=== PATIENT | female | born 1990 | race American Indian/Alaskan Native ===

== ENCOUNTER 2017-01-03 13:40 | Emergency (ER) | payer MEDICARE ==
[2017-01-03 14:35] VITALS: BP 103/64
[2017-01-03] MEDS ORDERED: TETRACAINE 0.5% OU PRN (16:20)
[2017-01-03] MEDS ORDERED: FUL-GLO OP ONE (16:20)
--- NOTE | 2017-01-03 16:30 | Emergency Department Report ---
ED Eye Problem HPI - General Chief complaint: Eye Problems Stated complaint: SWOLLEN EYE Time Seen by Provider: 01/03/17 16:08 Source: patient Mode of arrival: Ambulatory Limitations: No Limitations - History of Present Illness Initial comments: This is a 26-year-old female that presents intermittent with right eyelid swelling, redness, itching, crusting, and pain x1 week. Patient also stated has been having burning sensation to the right eye x1 week. Patient denies any trauma or foreign body to the eyes. Patient denies CP, SOB, visional changes, eye pain, blurry vision, headache, n/v, abd pain, stiff neck, facial drooping, difficulty speaking. Patient denies any allergies. Denies significant past medical history. MD chief complaint: other (right eyelid pain with swelling) -: Gradual, week(s) (1 intermittent ) Onset Description: gradual Location: right eye Place: home If Injury: none Eye Symptoms: burning, redness, pain, itching, discharge Severity: mild Severity scale (0 -10): 6 Consistency: intermittent Associated Symptoms: none. denies: headache, neck pain, nausea/vomiting, cough , rhinorrhea, fever, shortness of breath Treatments Prior to Arrival: none - Related Data Previous Rx's Medication Instructions Recorded Last Taken Type Hydrocortisone 1% [Hydrocortisone 1 applicatio TP TID #1 tube 03/31/15 Unknown Rx 1% CREAM] diphenhydrAMINE [Benadryl CAP] 25 mg PO Q6HR PRN #20 capsule 03/31/15 Unknown Rx medroxyPROGESTERone ACETATE 10 mg PO QDAY #10 tablet 03/31/15 Unknown Rx [Provera] Nitrofurantoin [place]/M-Cryst 100 mg PO Q12HR #14 capsule 04/14/15 Unknown Rx [Macrobid CAP] Phenazopyridine [Pyridium] 100 mg PO TID #6 tab 04/14/15 Unknown Rx Erythromycin [Erythromycin Ophth 10 applic OP QID #1 tube 01/03/17 Unknown Rx Oint] Allergies Allergy/AdvReac Type Severity Reaction Status Date / Time No Known Allergies Allergy Unverified 03/31/15 13:41 ED Review of Systems ROS: Stated complaint: SWOLLEN EYE Other details as noted in HPI Constitutional: denies: chills, fever Eyes: denies: eye pain, eye discharge, vision change ENT: denies: ear pain, throat pain Respiratory: denies: cough, shortness of breath, wheezing Cardiovascular: denies: chest pain, palpitations Endocrine: no symptoms reported Gastrointestinal: denies: abdominal pain, nausea, diarrhea Genitourinary: denies: urgency, dysuria, discharge Musculoskeletal: denies: back pain, joint swelling, arthralgia Skin: denies: rash, lesions Neurological: denies: headache, weakness, paresthesias Psychiatric: denies: anxiety, depression Hematological/Lymphatic: denies: easy bleeding, easy bruising ED Past Medical Hx - Past Medical History Previous Medical History?: Yes Additional medical history: ECZEMA - Surgical History Past Surgical History?: Yes Additional Surgical History: LEFT EYE SURGERY - Social History Smoking Status: Current Every Day Smoker Substance Use Type: None - Medications Home Medications: Home Medications Medication Instructions Recorded Confirmed Last Taken Type Hydrocortisone 1% [Hydrocortisone 1 applicatio TP TID #1 tube 03/31/15 Unknown Rx 1% CREAM] diphenhydrAMINE [Benadryl CAP] 25 mg PO Q6HR PRN #20 capsule 03/31/15 Unknown Rx medroxyPROGESTERone ACETATE 10 mg PO QDAY #10 tablet 03/31/15 Unknown Rx [Provera] Nitrofurantoin [place]/M-Cryst 100 mg PO Q12HR #14 capsule 04/14/15 Unknown Rx [Macrobid CAP] Phenazopyridine [Pyridium] 100 mg PO TID #6 tab 04/14/15 Unknown Rx Erythromycin [Erythromycin Ophth 10 applic OP QID #1 tube 01/03/17 Unknown Rx Oint] ED Physical Exam - General Limitations: No Limitations General appearance: alert, in no apparent distress - Head Head exam: Present: atraumatic, normocephalic - Eye Eye exam: Present: normal appearance, PERRL, EOMI. Absent: scleral icterus, conjunctival injection, nystagmus, periorbital swelling, periorbital tenderness Pupils: Present: normal accommodation - Expanded Eye Exam Expanded Eyelids: Normal Inspection: Right, Erythema: Right (with crusting), Swelling: Right Pupils: Regular, Round: Bilateral, Reactive: Bilateral Sclera/Conjunctival: Normal Inspection: Bilateral Visual acuity (R) = 20/: 25 Visual acuity (L) = 20/: 20 With correction: Yes - ENT ENT exam: Present: normal exam, normal orophraynx, mucous membranes moist, TM's normal bilaterally, normal external ear exam - Neck Neck exam: Present: normal inspection, full ROM. Absent: tenderness, meningismus, lymphadenopathy, thyromegaly - Respiratory Respiratory exam: Present: normal lung sounds bilaterally. Absent: respiratory distress, wheezes, rales, rhonchi, stridor, chest wall tenderness, accessory muscle use, decreased breath sounds, prolonged expiratory - Cardiovascular Cardiovascular Exam: Present: regular rate, normal rhythm, normal heart sounds. Absent: bradycardia, tachycardia, irregular rhythm, systolic murmur, diastolic murmur, rubs, gallop - GI/Abdominal GI/Abdominal exam: Present: soft, normal bowel sounds - Extremities Exam Extremities exam: Present: normal inspection, full ROM, normal capillary refill. Absent: tenderness, pedal edema, joint swelling, calf tenderness - Back Exam Back exam: Present: normal inspection, full ROM. Absent: tenderness, CVA tenderness (R), CVA tenderness (L), muscle spasm, paraspinal tenderness, vertebral tenderness, rash noted - Neurological Exam Neurological exam: Present: alert, oriented X3, CN II-XII intact, normal gait - Psychiatric Psychiatric exam: Present: normal affect, normal mood - Skin Skin exam: Present: warm, dry, intact, normal color. Absent: rash - Other Other exam information: Under rowley lamp, no corneal abrasion or foreign body noted on right eye. ED Course Vital Signs 01/03/17 14:33 Temperature 98.6 F Pulse Rate 75 Respiratory 18 Rate Blood Pressure 103/64 O2 Sat by Pulse 100 Oximetry - Reevaluation(s) Reevaluation #1: 01/03/17 17:05 Patient is talking and smiling with no signs of distress. ED Medical Decision Making - Medical Decision Making Ed course: This is a 26-year-old female that presents with Blepharitis of right eye 1- after my physical exam, under rowley lamp the cornea looks normal with no signs of foreign body or abrasion. 2- patient received topical erythromycin ointment 3- patient was instructed to follow-up with her primary care doctor in 3-5 days or if symptoms worsen such as blurry vision, visual changes, pus, drainage, chest pain, shortness of breath, nausea or vomiting, or headache reported back to emergency room as soon as possible. 4- patient was also instructed to use warm compresses, lid washing, and lid massaging to the affected eye. Critical care attestation.: If time is entered above; I have spent that time in minutes in the direct care of this critically ill patient, excluding procedure time. ED Disposition Clinical Impression: Blepharitis of eyelid of right eye Qualifiers: Blepharitis type: unspecified type Eyelid: upper Qualified Code(s): H01.001 - Unspecified blepharitis right upper eyelid Disposition: TO HOME OR SELFCARE Is pt being admited?: No Does the pt Need Aspirin: No Condition: Stable Instructions: Blepharitis (ED), Erythromycin (Into the eye) Additional Instructions: Follow-up with your primary care doctor in 3-5 days or if symptoms worsen such as blurry vision, visual changes, pus, drainage, chest pain, shortness of breath , nausea or vomiting, or headache reported back to emergency room as soon as possible. Use warm compresses, lid washing, and lid massaging to the affected eye. Take full course of antibiotics as prescribed Prescriptions: Erythromycin [Erythromycin Ophth Oint] 10 applic OP QID #1 tube Referrals: PRIMARY MD ANA [Primary Care Provider] - 3-5 Days [facility] [Outside] - 3-5 Days [facility] [place] [Outside] - 3-5 Days BENEDICTO DIAZ JR, MD [Staff Physician] - 3-5 Days FLORES ESCOBEDO MD [Referring] - 3-5 Days Forms: Work/School Release Form(ED)
== END 2017-01-03 18:28 | disposition home or self-care (01) ==
LOC: ED 13:40
DX: H01.001 Unspecified blepharitis right upper eyelid (principal); F17.200 Nicotine dependence, unspecified, uncomplicated
CPT/HCPCS: 99283

== ENCOUNTER 2017-06-15 14:41 | Emergency (ER) | payer MEDICARE ==
--- NOTE | 2017-06-15 18:05 | Emergency Department Report ---
Eye Injury/Foreign Body - HPI Duration: months Eye Location: Left Severity: None Tetanus Status: Not up to Date Eye Symptoms: Eye Pain: No, Blurred Vision: No, Eye Redness: No, Grinding/ Hammering Metal: No, Used Eye Protection: No, Contact Lens Use: No, Recalls Injury: No, Photophobia: No Other History: 27 0 -[place] female comes in today for complaint of sty on left eye that's been on and off for months. Patient persists she's been applying hot rags. This is not a new diagnosis she has had this since December. She is requesting eye ointment. She does have a history of eye surgery for a week by muscle. Patient currently takes no medications on a daily basis. ED Review of Systems ROS: Stated complaint: STYE Other details as noted in HPI Comment: All other systems reviewed and negative Constitutional: denies: chills, fever Eyes: other (growth on the left upper lid) ENT: denies: ear pain, throat pain Respiratory: denies: cough, shortness of breath, wheezing Cardiovascular: denies: chest pain, palpitations Endocrine: no symptoms reported ED Past Medical Hx - Past Medical History Previous Medical History?: No Additional medical history: ECZEMA - Surgical History Additional Surgical History: LEFT EYE SURGERY - Social History Smoking Status: Never Smoker Substance Use Type: None - Medications Home Medications: Home Medications Medication Instructions Recorded Confirmed Last Taken Type Hydrocortisone 1% [Hydrocortisone 1 applicatio TP TID #1 tube 03/31/15 Unknown Rx 1% CREAM] diphenhydrAMINE [Benadryl CAP] 25 mg PO Q6HR PRN #20 capsule 03/31/15 Unknown Rx medroxyPROGESTERone ACETATE 10 mg PO QDAY #10 tablet 03/31/15 Unknown Rx [Provera] Nitrofurantoin [place]/M-Cryst 100 mg PO Q12HR #14 capsule 04/14/15 Unknown Rx [Macrobid CAP] Phenazopyridine [Pyridium] 100 mg PO TID #6 tab 04/14/15 Unknown Rx Erythromycin [Erythromycin Ophth 10 applic OP QID #1 tube 06/15/17 Unknown Rx Oint] Eye Injury Exam - Exam General: Vital signs noted. No distress. Alert and acting appropriately. - Visual Acuity Left Eye Exam: Neither Injection, Neither Chemosis, Neither Abnormal Pupil, Neither EOMI, Neither Eye Foreign Body, Neither Lid Foreign Body, Neither Mucous Discharge, Neither Purulent Discharge Exam: Left upper lid firm lesion appears to be a stye. Nontender to palpate no eyelash matting no purulent discharge no change of vision no pain. ED Course Vital Signs 06/15/17 16:05 Temperature 98.6 F Pulse Rate 93 H Respiratory 18 Rate Blood Pressure 113/56 O2 Sat by Pulse 100 Oximetry ED Medical Decision Making - Medical Decision Making Patient seen by this provider fast track. Discussed the patient is a chronic issue that we will give her erythromycin ointment to place on the left eyelid. Discussed the patient that she continues baby shampoo to clean her eyelid. Discussed the patient she continues warm rags compresses to the left upper eyelid. Discussed with patient that she needs to follow-up with her primary care provider or tray room worker. Patient verbalized understanding. Critical care attestation.: If time is entered above; I have spent that time in minutes in the direct care of this critically ill patient, excluding procedure time. ED Disposition Clinical Impression: History of hordeolum Hordeolum externum (morena) Qualifiers: Laterality: left Eyelid: upper Qualified Code(s): H00.014 - Hordeolum externum left upper eyelid Disposition: DC-01 TO HOME OR SELFCARE Is pt being admited?: No Does the pt Need Aspirin: No Condition: Stable Instructions: Morena (ED) Additional Instructions: Please follow up with her primary care provider and or tray room worker for further evaluation. Prescriptions: Erythromycin [Erythromycin Ophth Oint] 10 applic OP QID #1 tube Referrals: PRIMARY CARE, [Primary Care Provider] - 3-5 Days JAKOB LANTIGUA MD [Staff Physician] - 3-5 Days ELAINE BAZAN MD [Staff Physician] - 3-5 Days
[2017-06-15 19:21] VITALS: BP 98/59
== END 2017-06-15 19:09 | disposition home or self-care (01) ==
LOC: ED 14:41
DX: H00.014 Hordeolum externum left upper eyelid (principal); Z98.890 Other specified postprocedural states
CPT/HCPCS: 99282

== ENCOUNTER 2021-03-09 21:46 | Emergency (ER) | payer OTHER, MEDICARE ==
[2021-03-10 01:49] VITALS: BP 119/76
--- NOTE | 2021-03-10 04:40 | Emergency Department Report ---
- General Chief Complaint: Upper Respiratory Infection Stated Complaint: COUGH/SORE THROAT Time Seen by Provider: 03/10/21 04:28 Source: patient Mode of arrival: Ambulatory Limitations: No Limitations - History of Present Illness Initial Comments: Patient 31-year-old -[place] female who presents with sore throat and cough x2 days. There has been no fever no nausea no vomiting. Patient denies shortness of breath there is no wheezing no stridor. Symptoms are exacerbated by activity. Symptoms are relieved by nothing tried. Patient denies other medical history. MD Complaint: cough, sore throat - Related Data Previous Rx's Medication Instructions Recorded Last Taken Type Hydrocortisone 1% [Hydrocortisone 1 applicatio TP TID #1 tube 03/31/15 Unknown Rx 1% CREAM] diphenhydrAMINE [Benadryl CAP] 25 mg PO Q6HR PRN #20 capsule 03/31/15 Unknown Rx medroxyPROGESTERone ACETATE 10 mg PO QDAY #10 tablet 03/31/15 Unknown Rx [Provera] Nitrofurantoin [place]/M-Cryst 100 mg PO Q12HR #14 capsule 04/14/15 Unknown Rx [Macrobid CAP] Phenazopyridine [Pyridium] 100 mg PO TID #6 tab 04/14/15 Unknown Rx Erythromycin [Erythromycin Ophth 10 applic OP QID #1 tube 06/15/17 Unknown Rx Oint] Guaifenesin/Pseudoephedrne HCl 1 tab PO BID PRN #24 tab 03/10/21 Unknown Rx [Mucinex D ER 1,200-120 mg Tab] Ibuprofen [Motrin 800 MG tab] 800 mg PO Q8HR PRN #30 tablet 03/10/21 Unknown Rx Allergies Allergy/AdvReac Type Severity Reaction Status Date / Time No Known Allergies Allergy Unverified 03/31/15 13:41 ED Review of Systems ROS: Stated complaint: COUGH/SORE THROAT Other details as noted in HPI Constitutional: chills, malaise Eyes: denies: eye pain, eye discharge, vision change ENT: throat pain, congestion Respiratory: cough. denies: shortness of breath, wheezing Cardiovascular: denies: chest pain, palpitations Endocrine: no symptoms reported Gastrointestinal: denies: abdominal pain, nausea, vomiting, diarrhea Genitourinary: denies: urgency, dysuria, discharge Musculoskeletal: denies: back pain, joint swelling, arthralgia Skin: denies: rash, lesions Neurological: denies: headache, weakness, paresthesias Psychiatric: denies: anxiety, depression Hematological/Lymphatic: denies: easy bleeding, easy bruising ED Past Medical Hx - Past Medical History Previous Medical History?: Yes Additional medical history: ECZEMA - Surgical History Past Surgical History?: Yes Additional Surgical History: LEFT EYE SURGERY - Social History Smoking Status: Current Some Day Smoker Substance Use Type: None - Medications Home Medications: Home Medications Medication Instructions Recorded Confirmed Last Taken Type Hydrocortisone 1% [Hydrocortisone 1 applicatio TP TID #1 tube 03/31/15 Unknown Rx 1% CREAM] diphenhydrAMINE [Benadryl CAP] 25 mg PO Q6HR PRN #20 capsule 03/31/15 Unknown Rx medroxyPROGESTERone ACETATE 10 mg PO QDAY #10 tablet 03/31/15 Unknown Rx [Provera] Nitrofurantoin [place]/M-Cryst 100 mg PO Q12HR #14 capsule 04/14/15 Unknown Rx [Macrobid CAP] Phenazopyridine [Pyridium] 100 mg PO TID #6 tab 04/14/15 Unknown Rx Erythromycin [Erythromycin Ophth 10 applic OP QID #1 tube 06/15/17 Unknown Rx Oint] Guaifenesin/Pseudoephedrne HCl 1 tab PO BID PRN #24 tab 03/10/21 Unknown Rx [Mucinex D ER 1,200-120 mg Tab] Ibuprofen [Motrin 800 MG tab] 800 mg PO Q8HR PRN #30 tablet 03/10/21 Unknown Rx ED Physical Exam - General Limitations: No Limitations General appearance: alert, in no apparent distress - Head Head exam: Present: atraumatic - Eye Eye exam: Present: normal appearance, PERRL, EOMI. Absent: conjunctival injection, nystagmus Pupils: Present: normal accommodation - ENT ENT exam: Present: normal orophraynx, mucous membranes moist, TM's normal bilaterally, normal external ear exam - Neck Neck exam: Present: normal inspection, full ROM. Absent: tenderness, lymphadenopathy - Respiratory Respiratory exam: Present: normal lung sounds bilaterally. Absent: respiratory distress, wheezes, stridor, chest wall tenderness - Cardiovascular Cardiovascular Exam: Present: regular rate, normal rhythm, normal heart sounds. Absent: systolic murmur, diastolic murmur, rubs, gallop - GI/Abdominal GI/Abdominal exam: Present: soft, normal bowel sounds. Absent: distended, tenderness - Rectal Rectal exam: Present: deferred - Extremities Exam Extremities exam: Present: normal inspection, full ROM, normal capillary refill. Absent: tenderness - Back Exam Back exam: Present: normal inspection. Absent: full ROM, CVA tenderness (R), C VA tenderness (L) - Neurological Exam Neurological exam: Present: alert, oriented X3, CN II-XII intact, normal gait - Expanded Neurological Exam Expanded Patient oriented to: Present: person, place, time Speech: Present: fluid speech Best Eye Response ([place]): (4) open spontaneously Best Motor Response ([place]): (6) obeys commands Best Verbal Response ([place]): (5) oriented Jenny Total: 15 - Psychiatric Psychiatric exam: Present: normal affect - Skin Skin exam: Present: warm, dry, intact, normal color. Absent: rash ED Course Vital Signs 03/10/21 01:35 Temperature 98.6 F Pulse Rate 99 H Respiratory 18 Rate Blood Pressure 119/76 O2 Sat by Pulse 98 Oximetry ED Medical Decision Making - Medical Decision Making Vital signs are stable, exam is normal, lung sounds are clear throughout there is no wheezing no stridor no shortness of breath. This is a URI, likely viral pharyngitis. Plan NSAIDs as needed, hydrate as directed, follow-up with primary care doctor in 2 to 3 days. Critical care attestation.: If time is entered above; I have spent that time in minutes in the direct care of this critically ill patient, excluding procedure time. ED Disposition Clinical Impression: URI (upper respiratory infection) Qualifiers: URI type: unspecified URI Qualified Code(s): J06.9 - Acute upper respiratory infection, unspecified Disposition: HOME / SELF CARE / HOMELESS Is pt being admited?: No Does the pt Need Aspirin: No Condition: Stable Instructions: Upper Respiratory Infection, Adult, [id number] Additional Instructions: Take all medications as prescribed, hydrate as directed, follow-up with your primary care doctor in 2 to 3 days. Return to emergency department if symptoms worsen. Prescriptions: Ibuprofen [Motrin 800 MG tab] 800 mg PO Q8HR PRN #30 tablet PRN Reason: pain fever Guaifenesin/Pseudoephedrne HCl [Mucinex D ER 1,200-120 mg Tab] 1 tab PO BID PRN #24 tab PRN Reason: cogestion Cough Referrals: RAJAT WOODSON MD [Staff Physician] - 3-5 Days Forms: Work/School Release Form(ED) Time of Disposition: 04:40
== END 2021-03-10 05:14 | disposition home or self-care (01) ==
LOC: ED 21:46
DX: J06.9 Acute upper respiratory infection, unspecified (principal); F17.200 Nicotine dependence, unspecified, uncomplicated; Z79.899 Other long term (current) drug therapy; Z98.890 Other specified postprocedural states
CPT/HCPCS: 99282